=== PATIENT | female | born 2000 | race American Indian/Alaskan Native ===

== ENCOUNTER 2020-02-05 19:43 | Emergency (ER) | payer BC ==
--- NOTE | 2020-02-05 20:17 | Emergency Department Report ---
Blank Doc - Documentation Documentation: 19-year-old female that presents with abdominal pain with n/v. This initial assessment/diagnostic orders/clinical plan/treatment(s) is/are subject to change based on patient's health status, clinical progression and re- assessment by fellow clinical providers in the ED. Further treatment and workup at subsequent clinical providers discretion. Patient/guardians urged not to elope from the ED as their condition may be serious if not clinically assessed and managed. Initial orders include: 1- Patient sent to [facility] for further evaluation and treatment 2- labs 3- UA
[2020-02-05 21:06] VITALS: BP 140/88
[2020-02-05 21:09] LABS: HCG Qualitative,Urine Negative (Negative)
[2020-02-05 21:10] LABS: Basophils # (Auto) 0.1 K/mm3 (0.0-0.1); Basophils % (Auto) 1.4 % (0.0-1.8); Eosinophils # (Auto) 0.3 K/mm3 (0.0-0.4); Eosinophils % (Auto) 4.1 % (0.0-4.3); Hematocrit 41.4 % (30.3-42.9); Hemoglobin 13.5 gm/dl (10.1-14.3); Lymphocytes # (Auto) 2.3 K/mm3 (1.2-5.4); Lymphocytes % (Auto) 33.5 % (13.4-35.0); Mean Corpuscular HGB Conc 33 % (30-34); Mean Corpuscular Volume 89 fl (79-97); Monocytes # (Auto) 0.5 K/mm3 (0.0-0.8); Monocytes % (Auto) 7.1 % (0.0-7.3); Platelet Count 224 K/mm3 (140-440); Red Blood Count 4.65 M/mm3 (3.65-5.03); Red Cell Distribution Width 14.1 % (13.2-15.2)
[2020-02-05 21:12] LABS: Bilirubin,Urine NEG (Negative); Blood,Urine NEG (Negative); Color,Urine Yellow (Yellow); Mucus,Urine FEW /HPF; Protein,Urine <15 mg/dL mg/dL (Negative); Urobilinogen,Urine < 2.0 mg/dL (<2.0)
[2020-02-05 21:31] LABS: Alanine Aminotransferase 12 units/L (7-56); Albumin 4.5 g/dL (3.9-5); Blood Urea Nitrogen 9 mg/dL (7-17); Calcium 9.6 mg/dL (8.4-10.2); Hemolysis Index 20
[2020-02-05 21:48] LABS: BUN/Creatinine Ratio 13
[2020-02-06] MEDS ORDERED: ONDANSETRON 4 MG/2 ML INJ IV ONE (03:57)
[2020-02-06] MEDS ORDERED: SODIUM CHLORIDE 0.9% 1000 ML 1,000 ML IV ONE (03:57)
[2020-02-06] MEDS ORDERED: MORPHINE 4 MG/1 ML INJ IV ONE (03:57)
--- NOTE | 2020-02-06 06:06 | Cat Scan Report ---
CT abdomen pelvis w con INDICATION: Abdominal pain. TECHNIQUE: All CT scans at this location are performed using CT dose reduction for ALARA by means of automated e xposure control. COMPARISON: None available. FINDINGS: Lung bases are clear. Liver, gallbladder, spleen, pancreas, kidneys and adrenals are negative. Abdomi nal aorta is normal in size. No adenopathy. Pelvis Urinary bladder, uterus and ovaries appear negative. No free fluid or inflammatory change. Appendix c annot be identified. IMPRESSION: 1. No acute abnormalities. Signer Name: Jerry Cunningham MD Signed: 02/06/2020 6:01 AM Workstation Name: [id number]
--- NOTE | 2020-02-06 06:13 | Emergency Department Report ---
ED Abdominal Pain HPI - General Chief Complaint: Abdominal Pain Stated Complaint: SEVERE ABD PAIN Time Seen by Provider: 02/05/20 20:17 Source: patient Mode of arrival: Ambulatory Limitations: No Limitations - History of Present Illness Initial Comments: Patient is a nulliparous 19-year-old -[place] female with no past medical history who presents to the ED with complaint of acute onset persistent diffuse abdominal pain and intractable nausea and vomiting for the last 5 days. Patient states that the symptoms began after she started having her menstrual cycle 5 days ago and has been persistent despite taking Tylenol at home for pain. Patient states that her cycle since ended 24 hours ago but she still has intractable nausea and vomiting with diffuse abdominal pain. Patient denies dysuria, urinary frequency and urgency, dizziness, syncope, chest pain, shortness of breath, diarrhea, vaginal bleeding or vaginal discharge and low back pain. MD Complaint: abdominal pain, other (dysmenorrhea; Nausea and vomiting) -: Sudden, days(s) (5) Location: diffuse Radiation: none Migration to: no migration Severity: severe Severity scale (0 -10): 7 Quality: cramping, aching Consistency: constant Improves With: nothing Worsens With: vomiting, movement Associated Symptoms: denies other symptoms, nausea, vomiting. denies: diarrhea, fever, chills, dysuria, hematemesis, hematochezia, melena, anorexia, syncope - Related Data LMP Date: 01/31/20 Previous Rx's Medication Instructions Recorded Last Taken Type Albuterol Mdi (or & Nicu Only) 2 puff IH QID PRN #1 inhalation 03/18/13 Unknown Rx [ProAir HFA Inhaler] Amoxicillin [Amoxicillin 400 mg/5 800 mg PO Q12H #200 ml 03/18/13 Unknown Rx ml] Brompheniram/Phenylephrine/Dm 10 ml PO Q6HR PRN #120 ml 03/18/13 Unknown Rx [Dimetapp Cold-Cough Liquid] Dicyclomine [Bentyl] 20 mg PO Q6H PRN #20 tablet 02/06/20 Unknown Rx Famotidine [Pepcid] 20 mg PO BID #30 tablet 02/06/20 Unknown Rx Ibuprofen [Motrin] 600 mg PO Q8H PRN #24 tablet 02/06/20 Unknown Rx Ondansetron [Zofran Odt] 4 mg PO Q6HR PRN #20 tab.rapdis 10/08/20 Unknown Rx Allergies Allergy/AdvReac Type Severity Reaction Status Date / Time No Known Allergies Allergy Unverified 03/18/13 14:58 ED Review of Systems ROS: Stated complaint: SEVERE ABD PAIN Other details as noted in HPI Constitutional: denies: chills, fever Eyes: denies: eye pain, eye discharge, vision change ENT: denies: ear pain, throat pain Respiratory: denies: cough, shortness of breath, wheezing Cardiovascular: denies: chest pain, palpitations Endocrine: no symptoms reported Gastrointestinal: abdominal pain, nausea, vomiting. denies: diarrhea Genitourinary: denies: urgency, dysuria, discharge Musculoskeletal: denies: back pain, joint swelling, arthralgia Skin: denies: rash, lesions Neurological: denies: headache, weakness, paresthesias Psychiatric: denies: anxiety, depression Hematological/Lymphatic: denies: easy bleeding, easy bruising ED Past Medical Hx - Past Medical History Previous Medical History?: No - Surgical History Past Surgical History?: No - Social History Smoking Status: Never Smoker Substance Use Type: None - Medications Home Medications: Home Medications Medication Instructions Recorded Confirmed Last Taken Type Albuterol Mdi (or & Nicu Only) 2 puff IH QID PRN #1 inhalation 03/18/13 Unknown Rx [ProAir HFA Inhaler] Amoxicillin [Amoxicillin 400 mg/5 800 mg PO Q12H #200 ml 03/18/13 Unknown Rx ml] Brompheniram/Phenylephrine/Dm 10 ml PO Q6HR PRN #120 ml 03/18/13 Unknown Rx [Dimetapp Cold-Cough Liquid] Dicyclomine [Bentyl] 20 mg PO Q6H PRN #20 tablet 02/06/20 Unknown Rx Famotidine [Pepcid] 20 mg PO BID #30 tablet 02/06/20 Unknown Rx Ibuprofen [Motrin] 600 mg PO Q8H PRN #24 tablet 02/06/20 Unknown Rx Ondansetron [Zofran Odt] 4 mg PO Q6HR PRN #20 tab.rapdis 02/06/20 Unknown Rx ED Physical Exam - General Limitations: No Limitations General appearance: alert, in no apparent distress - Head Head exam: Present: atraumatic, normocephalic, normal inspection - Eye Eye exam: Present: normal appearance, PERRL, EOMI Pupils: Present: normal accommodation - ENT ENT exam: Present: normal exam, normal orophraynx, mucous membranes moist, TM's normal bilaterally, normal external ear exam - Neck Neck exam: Present: normal inspection, full ROM - Respiratory Respiratory exam: Present: normal lung sounds bilaterally. Absent: respiratory distress, wheezes, rales, rhonchi, chest wall tenderness, accessory muscle use, decreased breath sounds, prolonged expiratory - Cardiovascular Cardiovascular Exam: Present: normal rhythm, tachycardia, normal heart sounds. Absent: systolic murmur, diastolic murmur, rubs, gallop - GI/Abdominal GI/Abdominal exam: Present: soft, tenderness (Palpable diffuse abdominal tenderness), normal bowel sounds. Absent: guarding, rebound, hyperactive bowel sounds, hypoactive bowel sounds, organomegaly - Bi-manual exam: Present: other (Pelvic exam deferred) - Extremities Exam Extremities exam: Present: normal inspection, full ROM, normal capillary refill - Back Exam Back exam: Present: normal inspection, full ROM. Absent: tenderness, CVA tenderness (R), muscle spasm, paraspinal tenderness - Neurological Exam Neurological exam: Present: alert, oriented X3, CN II-XII intact, normal gait, reflexes normal - Psychiatric Psychiatric exam: Present: normal affect, normal mood - Skin Skin exam: Present: warm, dry, intact, normal color. Absent: rash ED Course Vital Signs 02/05/20 20:18 Temperature 99.1 F Pulse Rate 101 H Respiratory 20 Rate Blood Pressure 140/88 O2 Sat by Pulse 98 Oximetry ED Medical Decision Making - Lab Data Result diagrams: 02/05/20 20:39 02/05/20 20:39 - Radiology Data Radiology results: report reviewed, image reviewed Findings [address] [address] Cat Scan Report Signed Patient: DAISY HENSLEY MR#: [id number] : 2000 Acct:[id number] Age/Sex: 19 / F ADM Date: 02/05/20 Loc: ED Attending Dr: Ordering Physician: BRAXTON BUTCHER Date of Service: 02/06/20 Procedure(s): CT abdomen pelvis w con Accession Number(s): [id number] cc: BRAXTON BUTCHER CT abdomen pelvis w con INDICATION: Abdominal pain. TECHNIQUE: All CT scans at this location are performed using CT dose reduction for ALARA by means of automated exposure control. COMPARISON: None available. FINDINGS: Lung bases are clear. Liver, gallbladder, spleen, pancreas, kidneys and adrenals are negative. Abdominal aorta is normal in size. No adenopathy. Pelvis Urinary bladder, uterus and ovaries appear negative. No free fluid or inflammatory change. Appendix cannot be identified. IMPRESSION: 1. No acute abnormalities. Signer Name: Jerry Cunningham MD Signed: 02/06/2020 6:01 AM Workstation Name: [id number] Transcribed By: TM Dictated By: Jerry Cunningham MD Electronically Authenticated By: Jerry Cunningham MD Signed Date/Time: 02/06/20600 DD/ 8 TD/TT: - Medical Decision Making This is a nulliparous 19-year-old -[place] female with no past medical history who presents to the ED with complaint of acute onset persistent diffuse abdominal pain and intractable nausea and vomiting for the last 5 days. Patient states that the symptoms began after she started having her menstrual cycle 5 days ago and has been persistent despite taking Tylenol at home for pain. Patient states that her cycle since ended 24 hours ago but she still has intractable nausea and vomiting with diffuse abdominal pain. In the ED, patient is alert and oriented x3 and is not in distress. Patient was treated for pain in the ED and also given antiemetics and antacids, and also given normal saline 1 L IV bolus x1. Abdomen pelvis CT scan with contrast showed no acute ab normalities. On reevaluation, patient's pain is well controlled medications. Nausea and vomiting is also resolved on medications. Patient was discharged home on medications including antiemetics, pain medications and antacids and was advised to follow-up with her primary care physician or [facility] physician 5 to 7 days for reevaluation or return to the ED immediately if symptoms get worse. - Differential Diagnosis Dysmenorrhea; GERD; Dehydration; UTI; ; Gastritis Critical care attestation.: If time is entered above; I have spent that time in minutes in the direct care of this critically ill patient, excluding procedure time. ED Disposition Clinical Impression: Nausea and vomiting in adult, Dysmenorrhea Abdominal pain Qualifiers: Abdominal location: generalized Qualified Code(s): R10.84 - Generalized abdomin al pain Disposition: TO HOME OR SELFCARE Is pt being admited?: No Does the pt Need Aspirin: No Condition: Stable Instructions: Abdominal Pain (ED), Acute Nausea and Vomiting (ED), Gastroenteritis (ED), Dysmenorrhea (ED) Additional Instructions: Lab test results are all nonactionable. Abdomen-pelvis CT scan with contrast shows no acute abnormalities. Therefore take medications with food, drink plenty of fluids and follow up with your Primary Care Physician in 5-7 days for reevaluation. Return to the ED immediately if symptoms get worse. Prescriptions: Dicyclomine [Bentyl] 20 mg PO Q6H PRN #20 tablet PRN Reason: Abdominal pain Ibuprofen [Motrin] 600 mg PO Q8H PRN #24 tablet PRN Reason: Pain Famotidine [Pepcid] 20 mg PO BID #30 tablet Ondansetron [Zofran Odt] 4 mg PO Q6HR PRN #20 tab.rapdis PRN Reason: Nausea Referrals: PRIMARY CARE, [Primary Care Provider] - 3-5 Days Time of Disposition: 06:15 Print Language: SETSWANA
== END 2020-02-06 06:48 | disposition home or self-care (01) ==
LOC: ED 19:43
DX: R10.84 Generalized abdominal pain (principal); R11.2 Nausea with vomiting, unspecified; N94.6 Dysmenorrhea, unspecified; Z79.1 Long term (current) use of non-steroidal anti-inflammatories (NSAID); Z79.2 Long term (current) use of antibiotics; Z79.899 Other long term (current) drug therapy
CPT/HCPCS: 36415; 74177; 80053; 81001; 81025; 83690; 85025; 96361; 96374; 96375; 99284; J2270; J2405; J7030